=== PATIENT | female | born 1990 | race Caucasian/White ===

== ENCOUNTER 2018-04-02 00:53 | Emergency (ER) | payer MEDICAID, SELFPAY ==
[2018-04-02 00:54] VITALS: BP 124/92; PULSE 103; RESP 17; TEMP 36.5; O2SAT 99; BMI 20.5
--- NOTE | 2018-04-02 01:06 | ED.VISSUMM ---
- ER Visit Summary Date of Service: 04/02/18 Chief Complaint: Left ear pain History of Present Illness: The patient is a 27 F presenting with left ear pain. Patient states this has been ongoing for the past week. She states she tried an ear wax removal kit at home which did not improve her pain. She has had no fever. She has a mild sore throat with no difficulty swallowing. She has a history of multiple previous ear infections as a child. No other complaints. Physical Examination: Vitals are stable. Patient is afebrile. Alert no acute distress. HEENT exam left TM is erythematous and bulging. Mild pharyngeal erythema with no exudate, uvula midline. No mastoid tenderness Neck is supple. Anterior cervical lymphadenopathy Lungs are clear and equal bilaterally. Heart is regular rate and rhythm. Abdomen is soft nontender nondistended. Extremities are unremarkable. Skin is warm and dry. Remainder of exam is unremarkable. Emergency Department Course and Treatment: Patient is given amoxicillin. She is advised to follow-up with Dr. Tomas contract administration manager for no doc. Advised return ED for worsening complaints. Disposition: Discharge home Impression: Left otitis media This note was generated with VigLink dictation software. It may contain incorrect words, spelling, and punctuation that were not noted in review of the chart prior to signing ED Disposition - Plan for ED Patient: Chief Complaint: Ear Problem Referrals: Care Physician,No Primary [Primary Care Provider] -
--- NOTE | 2018-04-02 01:09 | ED.DCSUM_ITS ---
- ER Visit Summary Date of Service: 04/02/18 Chief Complaint: Left ear pain History of Present Illness: The patient is a 27 F presenting with left ear pain. Patient states this has been ongoing for the past week. She states she tried an ear wax removal kit at home which did not improve her pain. She has had no fever. She has a mild sore throat with no difficulty swallowing. She has a history of multiple previous ear infections as a child. No other complaints. Physical Examination: Vitals are stable. Patient is afebrile. Alert no acute distress. HEENT exam left TM is erythematous and bulging. Mild pharyngeal erythema with no exudate, uvula midline. No mastoid tenderness Neck is supple. Anterior cervical lymphadenopathy Lungs are clear and equal bilaterally. Heart is regular rate and rhythm. Abdomen is soft nontender nondistended. Extremities are unremarkable. Skin is warm and dry. Remainder of exam is unremarkable. Emergency Department Course and Treatment: Patient is given amoxicillin. She is advised to follow-up with Dr. Tomas supervisor contact lens for no doc. Advised return ED for worsening complaints. Disposition: Discharge home Impression: Left otitis media This note was generated with [employer] On[employer] dictation software. It may contain incorrect words, spelling, and punctuation that were not noted in review of the chart prior to signing ED Disposition - Plan for ED Patient: Chief Complaint: Ear Problem Referrals: Care Physician,No Primary [Primary Care Provider] -
--- NOTE | 2018-04-02 01:09 | ED.DEP ---
ED Disposition - Plan for ED Patient: Chief Complaint: Ear Problem Instructions: ED Otitis Media Serous Adult Prescriptions: Amoxicillin 500 mg PO TID #30 tablet Referrals: Care Physician,No Primary [Primary Care Provider] - Eyad Gorman MD [STAFF PHYSICIAN] - Jaleel Tomas DO [STAFF PHYSICIAN] -
--- NOTE | 2018-04-02 01:14 | ED.DEP ---
ED Disposition - Plan for ED Patient: Chief Complaint: Ear Problem Instructions: ED Otitis Media Serous Adult Prescriptions: Amoxicillin 500 mg PO TID #30 tablet Referrals: Eyad Gorman MD [STAFF PHYSICIAN] - Jaleel Tomas DO [STAFF PHYSICIAN] - Care Physician,No Primary [Primary Care Provider] -
[2018-04-02] MEDS: AMOXICILLIN 500 MG CAPSULE PO (01:25)
[2018-04-02 01:27] VITALS: RESP 18
== END 2018-04-02 01:27 | disposition home or self-care (01) ==
LOC: ED 01:20
PROVIDERS: Emergency Provider Emergency Medicine
DX: H66.92 Otitis media, unspecified, left ear (principal); J02.9 Acute pharyngitis, unspecified; Z72.0 Tobacco use
CPT/HCPCS: 99283

== ENCOUNTER 2018-07-23 20:37 | Emergency (ER) | payer SELFPAY ==
[2018-07-23 20:38] VITALS: BP 139/92; PULSE 114; RESP 17; TEMP 36.9; O2SAT 100; BMI 19.4
--- NOTE | 2018-07-23 21:02 | ED.VISSUMM ---
- ER Visit Summary Date of Service: 07/23/18 Chief Complaint: Left face swelling History of Present Illness: The patient is a 28 F with left face swelling over the past 4 days. Seems to involve her left cheek and left side of her nose. She never had this before. Nothing seemed to bring it on. She did try a friend's amoxicillin, and this seemed to help. She does report some congestion on the left side of her nose. No vision changes or eye problems. No fever or systemic symptoms. No headaches. No weakness or numbness. No significant medical history. She does smoke. Physical Examination: Afebrile and vital signs unremarkable except for heart rate of 114. Patient appears in no acute distress. Nontoxic. Head and neck unremarkable except for some left cheek tenderness to palpation and mild fullness to the area. Eyes unremarkable. Nose unremarkable. Ears normal. No lymphadenopathy. Neck normal. Heart regular. Lungs clear. Skin appears otherwise normal. Test Results: None indicated Emergency Department Course and Treatment: Patient has symptoms concerning for sinus infection or soft tissue infection. Nothing to suggest intracranial infection or more severe infection. Afebrile. Otherwise healthy. We will try Augmentin. Patient was warned about new or worsening findings. Return right away if they develop. Referred to primary care for follow-up. Treatment Plan: As above Disposition: Discharged Impression: 1. Acute sinusitis This note was generated with Chartbeat dictation software. It may contain incorrect words, spelling, and punctuation that were not noted in review of the chart prior to signing ED Disposition - Plan for ED Patient: Chief Complaint: Other, Pain/Inj Referrals: Care Physician,No Primary [Primary Care Provider] -
--- NOTE | 2018-07-23 21:05 | ED.DCSUM_ITS ---
- ER Visit Summary Date of Service: 07/23/18 Chief Complaint: Left face swelling History of Present Illness: The patient is a 28 F with left face swelling over the past 4 days. Seems to involve her left cheek and left side of her nose. She never had this before. Nothing seemed to bring it on. She did try a friend 's amoxicillin, and this seemed to help. She does report some congestion on the left side of her nose. No vision changes or eye problems. No fever or systemic symptoms. No headaches. No weakness or numbness. No significant medical history. She does smoke. Physical Examination: Afebrile and vital signs unremarkable except for heart rate of 114. Patient appears in no acute distress. Nontoxic. Head and neck unremarkable except for some left cheek tenderness to palpation and mild fullness to the area. Eyes unremarkable. Nose unremarkable. Ears normal. No lymphadenopathy. Neck normal. Heart regular. Lungs clear. Skin appears otherwise normal. Test Results: None indicated Emergency Department Course and Treatment: Patient has symptoms concerning for sinus infection or soft tissue infection. Nothing to suggest intracranial infection or more severe infection. Afebrile. Otherwise healthy. We will try Augmentin. Patient was warned about new or worsening findings. Return right away if they develop. Referred to primary care for follow-up. Treatment Plan: As above Disposition: Discharged Impression: 1. Acute sinusitis This note was generated with ExactFlat dictation software. It may contain incorrect words, spelling, and punctuation that were not noted in review of the chart prior to signing ED Disposition - Plan for ED Patient: Chief Complaint: Other, Pain/Inj Referrals: Care Physician,No Primary [Primary Care Provider] -
--- NOTE | 2018-07-23 21:05 | ED.DEP ---
ED Disposition - Plan for ED Patient: Chief Complaint: Other, Pain/Inj Instructions: Acute Sinusitis Prescriptions: Amox/Clavulanate Tablet [Augmentin Tablet] 875 mg PO Q12H #20 tab Referrals: Lesli Moses DO [NON-STAFF] -
[2018-07-23] MEDS: Amox/Clavulanate 875 MG Tablet PO (21:15)
== END 2018-07-23 21:27 | disposition home or self-care (01) ==
LOC: ED 21:26
PROVIDERS: Emergency Provider Emergency Medicine
DX: J01.90 Acute sinusitis, unspecified (principal); F17.210 Nicotine dependence, cigarettes, uncomplicated
CPT/HCPCS: 99283

== ENCOUNTER 2024-08-11 00:56 | Emergency (ER) | payer MEDICAID, SELFPAY ==
[2024-08-11 00:56] VITALS: BP 124/86; PULSE 85; RESP 18; TEMP 36.7; O2SAT 99; BMI 21.4
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
[2024-08-11] MEDS: Ibuprofen 600 MG Tablet PO (02:09)
[2024-08-11] MEDS: Lidocaine/Epi/Tetracaine 50 ML 1 APPLIC TOPICAL (02:09)
[2024-08-11] MEDS: oxyCODONE 5 MG Tablet PO (02:09)
[2024-08-11] MEDS: Lidocaine 1% (20 ml mdv) 20 ML Vial INFILT (02:09)
[2024-08-11 03:31] VITALS: BP 122/67; PULSE 87; RESP 16; TEMP 36.6; O2SAT 98
== END 2024-08-11 03:32 | disposition home or self-care (01) ==
PROVIDERS: Emergency Provider Emergency Medicine; Visit Provider Emergency Medicine
DX: S01.81XA Laceration without foreign body of other part of head, initial encounter (principal); Y04.8XXA Assault by other bodily force, initial encounter; S02.2XXA Fracture of nasal bones, initial encounter for closed fracture; F17.210 Nicotine dependence, cigarettes, uncomplicated
CPT/HCPCS: 13151; 70450; 70486; 99284